=== PATIENT | male | born 1950 | race Caucasian/White ===

== ENCOUNTER → 2018-05-31 13:25 | Outpatient (RCR) | payer OTHER, SELFPAY ==
[2018-05-31] VITALS (8 sets, daily range): BP systolic 99–106; BP diastolic 40–46; PULSE 58–73; RESP 14–18; TEMP 36.8–38.7
--- NOTE | 2018-05-31 14:36 | PC.NURSE ---
Day shift: Arrived on unit via at approx 1400. He is here to receive 2 units PRBC's. [facility] 's phone number in chart. Oriented to room and call light. He needs an IV started. No IV at this time. Will monitor Pt per blood infusion protocol. Call light in reach.
--- NOTE | 2018-05-31 14:59 | PC.NURSE ---
Day shift: IV started in left FA. Saline locked. Waiting on lab for blood.
[2018-05-31] MEDS: diphenhydrAMINE 25 MG TABLET PO (15:41)
[2018-05-31] MEDS: ACETAMINOPHEN 325 MG TABLET 650 MG PO (17:46)
--- NOTE | 2018-05-31 23:17 | PC.NURSE ---
Second unit infused. Vitals stable. Pt denies any adverse effects/or reaction. Iv in left forearm removed. Pt off the AC floor via wheelchair with spouse to private vehicle.
== END ==
LOC: INF 13:25
PROVIDERS: Visit Provider Family Medicine
DX: D64.9 Anemia, unspecified (principal); C15.9 Malignant neoplasm of esophagus, unspecified
CPT/HCPCS: 36415; 36430; 86850; 86900; 86901; P9016